=== PATIENT | male | born 1960 | race Two or more races ===

== ENCOUNTER → 2022-05-28 | Outpatient (CLI) | payer BC ==
--- NOTE | 2022-05-28 12:42 | NM ---
EXAMINATION TYPE: NM stress cardiolite complete DATE OF EXAM: 05/28/2022 COMPARISON: NONE HISTORY: History of hypercholesteremia with chest pain and palpitations. TECHNIQUE: After the intravenous administration of 10.05 mCi Tc 99m Sestamibi - Rest images obtained 60 minutes post injection. The patient exercised using a JIM protocol and 1 minute prior to peak exercise was injected with 25.1 mCi Tc 99m Sestamibi - Stress images obtained 20 minutes post inject ion. FINDINGS: Targeted heart rate was achieved during performance of the study. Review of stress and rest SPECT lori ges demonstrates no distinct perfusion abnormality. Gated analysis shows normal wall motion with an estimated left ventricular ejection fraction of 54 %. End diastolic volume slightly elevated from the normal range at 155 cc. IMPRESSION: No scintigraphic evidence for reversible ischemia
--- NOTE | 2022-05-29 11:00 | CA ---
Exercise Stress Test Report Name: Chace Fischer Exam Date: 05/28/2022 10:24 Exam Location: [place] Stress Ht (in): 68 Wt (lb): 192 BSA: 2.01 Ordering Phys: Malaika Saucedo MD Referring Phys: Malaika Saucedo MD Technologist: Brain Black Age: 62 Gender: M : 1960 Procedure CPT: Indications: I25.9 ICD-10 Codes: Patient History: CHEST PAIN, PALPITATIONS, ELEVATED CHOLESTEROL LEVELS, FAMILY HX OF HEART DISEASE Medications: ATORVASTATIN Meds past 24 hrs: Pretest Chest Pain: STRESS TEST Yonas Protocol Exercise Duration (min:sec): 08:[address] Depressions (mm): Angina Score: Haney Score: Resting HR (bpm): 68 Peak HR (bpm): 152 Resting BP (mmHg): 153 / 84 Peak BP (mmHg): 213 / 63 MPHR: 158 Target HR: 134 % MPHR: 96 METS: 10.3 Total Dose: Peak Dose: Atropine: Double Product: 65195 BP Response: Stress Termination: TARGET HR REACHED/MAX EXERTION Stress Symptoms: NO SYMPTOMS Stress Summary: ECG ANALYSIS Resting ECG: Stress ECG: CONCLUSIONS Excellent exercise tolerance. The patient exercised for 8 minutes and 30 seconds Excellent augmentation in the blood pressure and heart rate in response to exercise. The patient achieved 96% of maximum productive heart rate Normal EKG in response to exercise Dr. Presley Resendez MD (Electronically Signed) Final Date: 29 May 2022 10:59
== END | disposition home or self-care (01) ==
LOC: RADNMMAIN 08:51
PROVIDERS: ATTEND Internal Medicine
DX: I25.9 Chronic ischemic heart disease, unspecified (principal); E78.00 Pure hypercholesterolemia, unspecified; R07.9 Chest pain, unspecified; R00.2 Palpitations
CPT/HCPCS: 93017; 78452; A9500

== ENCOUNTER → 2022-07-27 | Outpatient (CLI) | payer BC ==
[2022-07-28 02:18] LABS: African American GFR (CKD) 94.6 (60.0-200.0); Anion Gap 9.9 mmol/L (10.00-18.00); Blood Urea Nitrogen 19.1 mg/dL (9.0-27.0); Carbon Dioxide 24.8 mmol/L (20.0-27.5); Non-African American GFR(CKD) 81.6 (60.0-200.0); Potassium 4.8 mmol/L (3.5-5.5)
[2022-07-28 02:23] LABS: HCT 41.6 % (39.6-50.0); HGB 13.5 g/dL (13.0-17.0); MCH 31.3 pg (27.0-32.0); MCHC 32.5 g/dL (32.0-37.0); MCV 96.3 fL (80.0-97.0); NRBC Per 100 WBC 0 /100 WBCS (0.0-0.0); Platelet Count 209 X 10*3/uL (140-440); RBC 4.32 X 10*6/uL (4.40-5.60); RDW 13.6 % (11.5-14.5); WBC 7.05 X 10*3/uL (4.50-10.00)
== END | disposition home or self-care (01) ==
LOC: LABPAT 16:13
PROVIDERS: ATTEND Internal Medicine Interventional Cardiology
DX: Z01.812 Encounter for preprocedural laboratory examination (principal); R94.39 Abnormal result of other cardiovascular function study
CPT/HCPCS: 36415; 80051; 82565; 84520; 85027

== ENCOUNTER → 2022-07-29 | Day surgery (SDC) | payer BC ==
[2022-07-28 09:49] VITALS: BMI 30.4
[~2022-07-29] MED LIST: ALPRAZolam 0.25 MG TAB PO PRN; ALPRAZolam 0.5 MG TAB PO PRN; ASPIRIN 325 MG TAB PO STA; ATORVASTATIN 80 MG TAB PO STA; HEPARIN SODIUM 1,000 UN/ML (10ML VL) IV ONE; HEPARIN SODIUM 1,000 UN/ML (10ML VL) ONE; HEPARIN SODIUM,PORCINE 10,000 UNIT in SODIUM CHLORIDE 0.9% 1,000 ML IRRIGATION PRN; HEPARIN SODIUM,PORCINE 2,500 UNIT in SODIUM CHLORIDE 0.9% 250 ML IRRIGATION PRN; IOPAMIDOL-370 100ML BTL INJ ONE; LIDOCAINE 1% INJ 10MG/ML (20 ML MDV) ONE; LIDOCAINE 1% INJ 10MG/ML (5 ML VIAL-PF) SQ ONE; MIDAZOLAM 2 MG/2 ML VIAL IVP ONE; NITROGLYCERIN SL TABS 0.4 MG TAB SUBLINGUAL PRN; SODIUM CHLORIDE 0.9% 1,000 ML in EMPTY BAG 1 BAG IV SCH; VERAPAMIL 2.5 MG/ML 2 ML AMP ONE; VERAPAMIL SYRINGE (5 MG/10 ML) INTRAARTER ONE
[2022-07-29 08:30] VITALS: RESP 18; TEMP 97.9
--- NOTE | 2022-07-29 12:42 | CA ---
Transthoracic Echo Report Name: Chace Fischer Age: 62 Gender: M : 1960 Exam Date: 07/29/2022 10:35 Exam Location: [place] Echo Ht (in): 68 Wt (lb): 200 Ordering Physician: Rivera Bello MD ([id number]) Attending/Referring Phys: Newspaper Editor Kirill Leonard Procedure CPT: Indications: ASSESS LV FUNCTION R/O CARDIOMYOPATHY Cardiac Hx: Technical Quality: Good Contrast 1: Total Dose (mL): Contrast 2: Total Dose (mL): MEASUREMENTS (Male / Female) Normal Values 2D ECHO LV Diastolic Diameter PLAX 4.6 cm 4.2 - 5.9 / 3.9 - 5.3 cm LV Systolic Diameter PLAX 2.1 cm IVS Diastolic Thickness 1.7 cm 0.6 - 1.0 / 0.6 - 0.9 cm LVPW Diastolic Thickness 1.3 cm 0.6 - 1.0 / 0.6 - 0.9 cm LV Relative Wall Thickness 0.7 RV Internal Dim ED PLAX 2.9 cm Aortic Root Diameter 3.4 cm LA Systolic Diameter LX 3.2 cm 3.0 - 4.0 / 2.7 - 3.8 cm LV Diastolic Volume MOD BP 63.7 cm??? 67 - 155 / 56 - 104 cm??? LV Systolic Volume MOD BP 26.5 cm??? 22 - 58 / 19 - 49 cm??? LV Ejection Fraction MOD BP 58.4 % >= 55 % LV Diastolic Volume MOD 4C 68.5 cm??? LV Systolic Volume MOD 4C 27.8 cm??? LV Ejection Fraction MOD 4C 59.4 % LV Diastolic Length 4C 7.6 cm LV Systolic Length 4C 6.5 cm LV Diastolic Volume MOD 2C 59.0 cm??? LV Systolic Volume MOD 2C 25.4 cm??? LV Ejection Fraction MOD 2C 57.0 % LV Diastolic Length 2C 7.7 cm LV Systolic Length 2C 6.5 cm Ascending Aorta Diameter 3.5 cm DOPPLER AV Peak Velocity 100.5 cm/s AV Peak Gradient 4.0 mmHg AI Peak Velocity 391.7 cm/s AI Peak Gradient 61.4 mmHg AI Pressure Half Time 840.8 ms MR Peak Velocity 475.9 cm/s MR Peak Gradient 90.6 mmHg Mitral E Point Velocity 79.9 cm/s Mitral A Point Velocity 34.4 cm/s Mitral E to A Ratio 2.3 MV Deceleration Time 224.8 ms MV E' Velocity 7.5 cm/s Mitral E to MV E' Ratio 10.6 TR Peak Velocity 265.9 cm/s TR Peak Gradient 28.3 mmHg Right Ventricular Systolic Press 33.4 mmHg FINDINGS Left Ventricle Left ventricular ejection fraction is estimated at _55-60 %. Mild to Moderate Concentric Left ventricular hypertrophy. Right Ventricle Normal right ventricular size and function. Right ventricular systolic pressure estimated at 38 mm hg. Right Atrium Normal right atrial size. Left Atrium Normal left atrial size. Mitral Valve Structurally normal mitral valve. [id number] mitral regurgitation. Aortic Valve Grossly Normal. Mild to Moderate Aortic reguritation. Tricuspid Valve Structurally normal tricuspid valve.[id number] tricuspid regurgitation. Pulmonic Valve Pulmonic valve not well visualized. No pulmonic regurgitation. Pericardium Normal pericardium. No pericardial effusion. Aorta Normal size aortic root and proximal ascending aorta. CONCLUSIONS Normal LV size and systolic function with mild concentric LVH. Mild to moderate aortic regurgitation and mild mitral regurgitation. No significant pulmonary hypertension. No pericardial effusion Previewed by: Dr. Rivera Bello MD (Electronically Signed) Final Date: 29 Jul 2022 12:41
[2022-07-29 12:54] VITALS: BP 139/77; PULSE 50
--- NOTE | 2022-07-29 17:31 | CC ---
CARDIAC CATHETERIZATION REPORT DATE OF SERVICE: 07/29/2022. PROCEDURES PERFORMED: Left heart catheterization and coronary angiography. PERFORMED BY: Dr. Brigiad Bello. Moderate conscious sedation time was 13 minutes. The patient was administered Versed. Oxygen saturation, hemodynamics, and EKG were monitored closely. CLINICAL INFORMATION: Mr. Chace Fischer is a 62-year-old gentleman with a history of borderline hypertension and hyperlipidemia, who has been having episodes of palpitations and occasional lightheadedness, and event monitor revealed short runs of nonsustained ventricular tachycardia and also 1 run which seemed more of an aberrancy as well. Because of frequent runs of nonsustained VT and symptoms of dizziness and near-syncope, I recommended coronary angiography. The patient was explained the details, risks, benefits, and options and wished to proceed with the procedure. PROCEDURE NOTE: Under local anesthesia and strict aseptic precautions, a 6-[place] introducer was placed in the right radial artery. Using JL3.5 and JR4 catheters, I performed coronary angiography, and the same right catheter was used to check LV pressures, but LV-gram was not performed. The patient tolerated the procedure well without complications. A Vasc Band was applied, and the saturation in the fingers of the right hand was 99%. CARDIAC CATHETERIZATION FINDINGS: The left ventricular end-diastolic pressure was about 18 mmHg without any gradient across aortic valve. CORONARY ANGIOGRAPHY FINDINGS: RIGHT CORONARY ARTERY: Large, dominant vessel, no significant disease, minor irregularities. Distally bifurcates into PDA and PLV, both of which have minor irregularities, no significant disease. LEFT MAIN CORONARY ARTERY: Short, patent vessel, free of significant disease, that bifurcates into LAD and circumflex. LEFT ANTERIOR DESCENDING CORONARY ARTERY: Good-caliber vessel, extends along the anterior wall, gives off septal and diagonal branch. There is a large diagonal branch that again gives secondary branches and a good-sized septal branch. LAD after the diagonal becomes smaller in caliber and distal one-fourth has mild diffuse disease, but no critical stenosis involving the entire LAD system, which is a fairly good distribution system. The diagonal is also large, has minor irregularities, no significant disease. LEFT POSTERIOR CIRCUMFLEX CORONARY ARTERY: Nondominant vessel, gives off a groove branch and a small obtuse marginal and then runs distally as a single obtuse marginal branch, has minor irregularities. About a 40% narrowing in the obtuse marginal branch after the AV groove branch and left atrial circumflex branch is noted. Circumflex is nondominant, has a 40% lesion in the obtuse marginal branch. LEFT VENTRICULOGRAM: Left ventriculogram was not performed. FINAL IMPRESSION: This patient has a right-dominant system, elevated filling pressures, no gradient, about a 40% circumflex disease. No significant disease in right coronary artery. Diffuse distal left anterior descending irregularities in the distal one-fourth. RECOMMENDATIONS: Continued medical therapy. I am adding losartan 50 mg daily to the regimen and continue beta-bj, statin, and aspirin. I will also refer him for Electrophysiology for possible EP study given his runs of ventricular tachycardia. We will obtain echocardiogram as well today. MMODL / IJN: [id number] /
== END ==
LOC: CATHCVL 08:12
PROVIDERS: ATTEND Internal Medicine Interventional Cardiology
DX: I25.10 Atherosclerotic heart disease of native coronary artery without angina pectoris (principal); I08.3 Combined rheumatic disorders of mitral, aortic and tricuspid valves; I47.1 Supraventricular tachycardia; F17.210 Nicotine dependence, cigarettes, uncomplicated; E78.5 Hyperlipidemia, unspecified; Z82.49 Family history of ischemic heart disease and other diseases of the circulatory system
CPT/HCPCS: 93458; 93306; 99152; C1769; C1894; J2250; J2001; J1644; Q9967

== ENCOUNTER → 2022-09-21 | Outpatient (CLI) | payer BC ==
[2022-09-21 16:07] LABS: Blood Urea Nitrogen 17.8 mg/dL (9.0-27.0); Carbon Dioxide 24.1 mmol/L (21.6-31.8); Chloride 108 mmol/L (96-109); Potassium 4.6 mmol/L (3.5-5.5); Sodium 142 mmol/L (135-145)
[2022-09-21 16:46] LABS: HCT 42.6 % (39.6-50.0); HGB 13.5 d/dL (12.0-15.0); MCH 30.5 pg (27.0-32.0); MCHC 31.7 d/dL (32.0-37.0); MCV 96.2 FL (80.0-97.0); Mean Platelet Volume 11.4 FL (9.5-12.2); NRBC Per 100 WBC 0 X 10*3/uL (0.00-0.01); Platelet Count 198 X 10*3/uL (140-440); RBC 4.43 X 10*6/uL (4.40-5.60); RDW 13.6 % (11.5-14.5); WBC 5.29 X 10*3/uL (4.50-10.00)
== END | disposition home or self-care (01) ==
LOC: LABPAT 10:02
PROVIDERS: ATTEND Internal Medicine Clinical Cardiac Electrophysiology
DX: Z01.812 Encounter for preprocedural laboratory examination (principal); I47.29 Other ventricular tachycardia
CPT/HCPCS: 80051; 82565; 84520; 85027

== ENCOUNTER → 2022-09-24 | Day surgery (SDC) | payer BC ==
[~2022-09-24] MED LIST changes: -ALPRAZolam 0.25 MG TAB PO PRN; -ALPRAZolam 0.5 MG TAB PO PRN; -ASPIRIN 325 MG TAB PO STA; -ATORVASTATIN 80 MG TAB PO STA; -HEPARIN SODIUM 1,000 UN/ML (10ML VL) IV ONE; -HEPARIN SODIUM 1,000 UN/ML (10ML VL) ONE; -HEPARIN SODIUM,PORCINE 10,000 UNIT in SODIUM CHLORIDE 0.9% 1,000 ML IRRIGATION PRN; -HEPARIN SODIUM,PORCINE 2,500 UNIT in SODIUM CHLORIDE 0.9% 250 ML IRRIGATION PRN; -IOPAMIDOL-370 100ML BTL INJ ONE; +LACTATED RINGERS 1,000 ML IV SCH; -LIDOCAINE 1% INJ 10MG/ML (20 ML MDV) ONE; -LIDOCAINE 1% INJ 10MG/ML (5 ML VIAL-PF) SQ ONE; +METOPROLOL TARTRATE 25 MG TAB PO STA; -MIDAZOLAM 2 MG/2 ML VIAL IVP ONE; -NITROGLYCERIN SL TABS 0.4 MG TAB SUBLINGUAL PRN; +SODIUM CHLORIDE 0.9% 1,000 ML IV SCH; -SODIUM CHLORIDE 0.9% 1,000 ML in EMPTY BAG 1 BAG IV SCH; -VERAPAMIL 2.5 MG/ML 2 ML AMP ONE; -VERAPAMIL SYRINGE (5 MG/10 ML) INTRAARTER ONE
[2022-09-24 06:38] VITALS: BP 151/89; PULSE 50; RESP 18; TEMP 97.8
== END ==
LOC: CATHEP 05:42
PROVIDERS: ATTEND Internal Medicine Clinical Cardiac Electrophysiology
DX: Z53.8 Procedure and treatment not carried out for other reasons (principal); I48.0 Paroxysmal atrial fibrillation
CPT/HCPCS: 86850; 86900; 86901

== ENCOUNTER 2022-09-28 12:40 | Day surgery (SDC) | payer BC ==
[~2022-09-28 12:40] MED LIST changes: -LACTATED RINGERS 1,000 ML IV SCH; -METOPROLOL TARTRATE 25 MG TAB PO STA
[2022-09-28] MEDS ORDERED: VANCOMYCIN 1,250 MG in SODIUM CHLORIDE 0.9% 250 ML IVPB ONE (14:26)
[2022-09-28] MEDS ORDERED: ISOPROTERENOL 250 MCG/1.25 ML SYR IV ONE (14:28)
[2022-09-28] MEDS ORDERED: MIDAZOLAM 2 MG/2 ML VIAL ONE (14:28)
[2022-09-28] MEDS ORDERED: fentaNYL (PF) 50 MCG/ML 2 ML AMP ONE (14:28)
[2022-09-28] MEDS ORDERED: PROPOFOL 10 MG/ML 20 ML VIAL IV ONE (14:28)
[2022-09-28] MEDS ORDERED: LIDOCAINE 1% INJ 10MG/ML (20 ML MDV) ONE ×2 (14:39→15:12)
[2022-09-28] MEDS ORDERED: ceFAZolin 1,000 MG in SODIUM CHLORIDE 0.9% IRRIG BTL 250 ML IRRIGATION STA (14:42)
--- NOTE | 2022-09-28 14:50 | P.HPCAR ---
History of Present Illness This is Dr. Kirk dictating a consult on this patient The patient was interviewed and examined IMPRESSION / ASSESSMENT: Sarcoidosis with LV involvement, no mediastinal adenopathy on cardiac MRI Evidence of transmural scar anterior base, on cardiac MRI Evidence of mid myocardial scar inferior to lateral base, on cardiac MRI Fairly normal LV size and systolic function and 2-D echo Recurrent presyncopal spells associated with palpitations, refractory to beta blockers Near-syncopal spells earlier this year Mild coronary artery disease with a 40% left circumflex stenosis Event monitor shows long runs of nonsustained VT of several different morphologies corresponding to multiple areas of scar/delayed enhancement on MRI Sinus bradycardia, unable to maximize beta blockers to even usual doses, to treat nonsustained VT PLAN: Diagnostic EP study for risk stratification Further management thereafter HPI Patient has a history of recurrent palpitations associated with near syncopal spells He has an abnormal MRI His palpitations continue despite metoprolol ROS: No fever chills or rigors, no cough, phlegm or expectoration, no nausea, vomiting or diarrhea, no hematuria, dysuria, no musculoskeletal complaints, no strokes or seizures, no skin lesions. EXAMINATION: Pulse rate in the 50s blood pressure 144/81 mmHg line and neck examination is normal heart sounds are normal Breath sounds are clear no rhonchi no crackles No lower extremity edema Soft abdomen REVIEW OF LABS, ECG & MEDICAL DATA Currently on losartan, atorvastatin, aspirin and metoprolol but in very low doses on account of sick sinus syndrome Physical Exam Vitals: Vital Signs Temp Pulse Resp BP Pulse Ox 09/28/22 13:36 97.8 F 53 L 18 144/81 97 Intake and Output 09/27/22 09/28/22 09/28/22 22:59 06:59 14:59 Intake Total 100 Balance 100 Intake: IV 100 Other: Weight 87.8 kg Past Medical History Past Medical History: GERD/Reflux, Hyperlipidemia, Hypertension, Osteoarthritis (OA) Additional Past Medical History / Comment(s): ventricular tachycardia per pt., see Dr. Kirk H & P History of Any Multi-Drug Resistant Organisms: None Reported Past Surgical History: Heart Catheterization, Joint Replacement, Orthopedic Surgery Additional Past Surgical History / Comment(s): BILAT RAMY, alysha. arthroscopy knees, repair of facial orbital fx. w/hardware,. COLONOSCOPY. BILAT CTR Past Anesthesia/Blood Transfusion Reactions: No Reported Reaction Additional Past Anesthesia/Blood Transfusion Reaction / Comment(s): can be slow to wake up after anesthesia Past Psychological History: No Psychological Hx Reported Smoking Status: Current some day smoker Past Alcohol Use History: Occasional Additional Past Alcohol Use History / Comment(s): rare cigar @times, beer or 2 a week Past Drug Use History: None Reported - Past Family History Father Family Medical History: Cancer Physical Examination Vital Signs Temp Pulse Resp BP Pulse Ox 09/28/22 13:36 97.8 F 53 L 18 144/81 97 Intake and Output 09/27/22 09/28/22 09/28/22 22:59 06:59 14:59 Intake Total 100 Balance 100 Intake: IV 100 Other: Weight 87.8 kg Results Current Medications Generic Name Dose Route Start Last Admin Trade Name Freq PRN Reason Stop Dose Admin Sodium Chloride 1,000 mls @ 20 mls/hr 09/28/22 05:53 09/28/22 13:39 Saline 0.9% IV 10/28/22 05:54 100 mls .Q24H ANA Administration Vancomycin HCl 1,250 mg/ 250 mls @ 125 mls/hr 09/28/22 14:26 Sodium Chloride IVPB 09/28/22 16:25 ONCE ONE Protocol Cefazolin Sodium 1,000 mg/ 250 mls @ 500 mls/hr 09/28/22 14:42 Sodium Chloride IRRIGATION 09/28/22 15:11 ONCE STA Protocol Cefazolin Sodium 2 gm/ Sodium 50 mls @ 100 mls/hr 09/28/22 14:44 Chloride IVPB 09/28/22 15:13 ONCE STA Protocol Intake and Output 09/27/22 09/28/22 09/28/22 22:59 06:59 14:59 Intake Total 100 Balance 100 Intake: IV 100 Other: Weight 87.8 kg Patient Weight 09/29/22 06:59 Weight 87.8 kg
[2022-09-28] MEDS ORDERED: LIDOCAINE 1% INJ 10MG/ML (20 ML MDV) SQ ONE ×3 (14:53→17:05)
[2022-09-28] MEDS ORDERED: IOPAMIDOL-370 100ML BTL IVP ONE (16:36)
--- NOTE | 2022-09-28 16:49 | P.EPPROC ---
- EP Procedure Note Electrophysiology Procedure Note: Diagnosis Sarcoidosis Structurally abnormal LV on cardiac MRI with transmural scar in the anterior basal septum Mid myocardial/epicardial scar inferior laterally at the base on cardiac MRI Recurrent presyncopal spells associated with palpitations Documented nonsustained ventricular tachycardia multiple different morphologies Diagnostic EP study Patient was brought to the EP lab in a fasting state. Written informed consent was obtained prior to procedure Venous sheaths were placed in the right femoral vein and diagnostic catheters were positioned in the high right atrium His bundle area and the right ventricle at 2 different sites Sinus cycle length 1142 ms, ID interval 142 ms, QRS 110 ms and QT interval 470 ms AH interval 61 ms H and HV interval 40 ms VA Wenckebach block greater than 480 ms. Dimitry response was noted to Parahisian pacing However with nonselective His bundle capture the PRICE time was 275 ms Sinus node recovery times revealed abnormal sinus node function with prolonged sinus node recovery times of 1483 and 1604. AV node function antegradely was also abnormal. AV node Wenckebach block 410 ms VA Wenckebach block 440 ms Burst stimulation in the right ventricle was performed Ventricular extra stimulation was performed from 2 sites Polymorphic VT was induced, nonsustained All sheaths were removed at the end the study and Vascade was used to seal the punctures Impression Conduction system study revealed abnormal sinus node function Abnormal AV node function Normal HV interval Inducible PMVT, nonsustained Plan in view of sarcoidosis with the LV structural abnormality with high risk for sudden cardiac arrest based on at least 2 areas on cardiac MRI as described above recurrent presyncope associated with palpitations, continue palpitations on beta blockers, nonsustained VT of multiple different morphologies on event monitor and evidence of Sick Sinus Syndrome/abnormal AV node function, I would recommend a dual-chamber ICD for management of risk of sudden cardiac and management of conduction system disease. This will also allow us to maximize his beta blockers and any future use any suppressive antiarrhythmic drug therapy for suppression of ventricular tachycardia.
[2022-09-28] MEDS ORDERED: ACETAMINOPHEN TAB 325 MG TAB PO PRN (18:10)
--- NOTE | 2022-09-28 18:28 | P.EPPROC ---
- EP Procedure Note Electrophysiology Procedure Note: Diagnosis Cardiac sarcoidosis, LV structural disease with high risk of sudden cardiac Transmural scar anterior septal base, on cardiac MRI Inferior lateral basal scar, mid myocardial/epicardial Recurrent presyncopal spells and near syncopal spells associated with palpitations Recurrent palpitations despite beta blockers Documented fast nonsustained VT of multiple different morphologies Evidence of sinus node dysfunction and AV node dysfunction on diagnostic EP study Procedure: Dual-chamber ICD implantation for management of risk of sudden cardiac /bradycardia Result: Dual chamber ICD implantation, Ana Paula Nelson DR Atrial lead: Tendril STS model #2088 TC 52 cm length, right atrial appendage, active fix lead RV ICD lead: Up to assure 58 cm single coil ICD lead in the RV apex, active fix Procedure details: Patient was brought to the EP lab in a fasting state. Written informed consent was obtained prior to the procedure. Options, pros and cons, benefits and risks and complications discussed with patient in detail prior to the procedure (shared decision making). Importance of continuing medical treatment emphasized. Alternatives discussed. Patient would like to proceed with dual-chamber ICD implant. Left upper extremity venogram performed. 15 mL IV dye injected in the left arm. Patent axillary/subclavian vein The left pectoral area was prepped and draped as a protocol. IV antibiotics administered 1% lidocaine was used for local anesthesia. A 4 cm incision was made parallel to the deltopectoral groove, about 1.5 cm medial to it. The incision was carried down to the level of the pectoralis muscle and the subfascial pocket was made. Hemostasis was assured. The axillary vein access was obtained. Appropriately sized into to see sheaths were placed. ICD lead implanted in the right ventricle and screwed in. ICD lead tested for threshold, sensing, impedances and tested with high output pacing for diaphragmatic stimulation Atrial lead placed in the right atrial appendage and tested for threshold, sensing, impedance, and tested with high output pacing. Phrenic nerve stimulation Lead secured to the underlying transverse muscle after removing sheaths . Pocket irrigated with antibiotic solution Leads connected to the biventricular ICD generator. Wound closed in 3 layers and dressed per protocol Dual ICD interrogated and programmed. Appropriate pacing parameters, antitachycardia therapies with antitachycardia pacing cardioversion defibrillations programmed. Patient tolerated the procedure well without any acute complications. See scanned device report in EMR for lead details Defibrillation level testing Defibrillation level tested in the cathodal configuration. Type 2 conversion with a 10 J shock This is repeated in Anodal configuration. Successful defibrillation of ventricular fibrillation High-voltage impedance 60 ohms, charge time 1.8 seconds MADIT RIT programming DDD 50 PPM Plan Increase beta bj dose. Stop metoprolol tartrate Start metoprolol succinate 50 mg by mouth daily and maximize further Continue losartan in the evening Baby aspirin and atorvastatin
--- NOTE | 2022-09-28 18:45 | P.PRLE ---
RE: Chace Fischer Dear Malaika Chace Fischer underwent implantation of a dual-chamber ICD for sarcoidosis with evidence of LV structural disease in the anterior basal septum (transmural scar) as well as inferolateral basal scarring. He is experiencing recurrent presyncopal spells associated with palpitations and we have documented nonsustained but fast VT of different morphologies. I will now increased and changed his beta bj to metoprolol succinate 50 mg by mouth daily He will remain on statin since he has nonobstructive 40% stenosis in the left circumflex and mild disease in the LAD However in the future he may discontinue aspirin completely since he does not have any clinical symptoms of angina but his statins should continue to keep his LDL well below 70 mg/dL, perhaps close to 50 mg/dL Thank you for entrusting me with the care of the patient Warm regards Sincerely Spencer Kirk
[2022-09-28] MEDS ORDERED: ACETAMINOPHEN IV (For NPO) 1,000 MG in EMPTY BAG 1 BAG IVPB ONE (19:00)
[2022-09-28] MEDS: ATORVASTATIN 10 MG TAB PO SCH (20:36)
[2022-09-28] MEDS: METOPROLOL SUCCINATE (ER) 50 MG TAB.ER.24H PO SCH (20:36)
--- NOTE | 2022-09-29 07:38 | XR ---
EXAMINATION TYPE: XR chest 2V DATE OF EXAM: 09/29/2022 COMPARISON: None HISTORY: 62-year-old male leak placement check TECHNIQUE: Frontal and lateral views FINDINGS: Left anterior chest wall AICD generator with right atrial and right ventricular leads. No appreciable pneumothorax. Heart normal size. Aorta and pulmonary vasculature within normal limits. No consolidat ion or pleural effusion. IMPRESSION: Left anterior chest wall with 2-lead AICD generator with right atrial and right ventricular leads. No pneumothorax.
[2022-09-29 07:41] VITALS: BP 124/75; PULSE 58; RESP 18; TEMP 98.7
[2022-09-29] MEDS: METOPROLOL SUCCINATE (ER) 50 MG TAB.ER.24H PO SCH (08:02)
[2022-09-29] MEDS: ATORVASTATIN 10 MG TAB PO SCH (08:02)
[2022-09-29] MEDS ORDERED: LOSARTAN 50 MG TAB PO SCH (09:00)
--- NOTE | 2022-09-29 09:49 | P.DS ---
Providers Attending physician: Spencer Kirk Primary care physician: Malaika Saucedo [facility] [facility] Course: This is a 62-year-old male who underwent dual-chamber ICD implantation for management of risk of sudden cardiac /bradycardia. Patient examined this morning at the bedside. Patient is doing well post-procedurally with no complications. The patient was deemed stable for discharge home today. Please see EMR for further hospital course details. Changes medical dual-chamber ICD was interrogated. Atrial pacing threshold 0.5 V 0.5 ms, P waves greater than 5 mV and pacing impedance 480 ohms this morning RV pacing threshold 0.5 V at 0.5 ms, R waves 19.7 mV and pacing impedance 550 ohms Discharge diagnosis Status post dual-chamber ICD implantation Cardiac sarcoidosis, LV structural disease with high risk of sudden cardiac Transmural scar anterior septal base, on cardiac MRI Inferior lateral basal scar, mid myocardial/epicardial Recurrent presyncopal spells and near syncopal spells associated with palpitations Recurrent palpitations despite beta blockers Documented fast nonsustained VT of multiple different morphologies Evidence of sinus node dysfunction and AV node dysfunction on diagnostic EP study Nurse practitioner note has been reviewed by physician. Signing provider agrees with the documented findings, assessment, and plan of care. Plan - Discharge Summary Discharge Rx Participant: No New Discharge Prescriptions: New Aspirin 81 mg PO DAILY #90 tab Metoprolol Succinate [Toprol XL] 50 mg PO DAILY #90 tab Discontinued Metoprolol Tartrate [Lopressor] 12.5 mg PO HS Aspirin 325 mg PO HS Metoprolol Tartrate [Lopressor] 25 mg PO DAILY No Action Losartan Potassium 50 mg PO DAILY Atorvastatin [Lipitor] 10 mg PO BID Discharge Medication List Atorvastatin [Lipitor] 10 mg PO BID 07/28/22 [History] Losartan Potassium 50 mg PO DAILY 09/21/22 [History] Aspirin 81 mg PO DAILY #90 tab 09/28/22 [Rx] Metoprolol Succinate [Toprol XL] 50 mg PO DAILY #90 tab 09/28/22 [Rx] Follow up Appointment(s)/Referral(s): Rivera Bello MD [STAFF PHYSICIAN] - 10/07/22 2:00 pm (Device clinic follow- up in one week) Patient Instructions/Handouts: Pacemaker (GEN), Cardiac Ablation (GEN) Activity/Diet/Wound Care/Special Instructions: PATIENT EDUCATION MATERIAL Instructions following a heart rhythm device implant. 1. Keep dressing DRY for 5 DAYS. You may cover the area with Saran or Cling Wrap, prior to a shower. 2. The dressing will be removed in the Device Clinic at [facility]. Absorbable sutures were used to close the wound. 3. Avoid raising the left arm above the shoulder level. 4 week restriction 4. Avoid arm movements, like backscratching, rubbing the head, or pulling on a cord. 4 weeks restriction 5. Gentle range of motion movements of the shoulder, closest to the incision should be performed to avoid a frozen shoulder. (Pendulum exercises of the shoulder) 6. The opposite arm may be used freely. 7. Avoid driving for 7 days. 8. Avoid activities such as golfing, swimming, weed whacking, lifting more than 10 pounds weight, bowling, gymnastics and weight training/lifting. (6 weeks restriction) 9. Activities such as wood chopping with an axe, pull-ups in the gymnasium, power lifting, arc-welding, being close to home induction cooktops will always be a problem. 10. Arm sling is only a reminder not to raise the arm above the head. You do not need to keep the arm completely immobilized. Your free to move the arm and use it and for normal activities. In case of any problems, please call [facility], [place], @ [phone], Attention: Device Clinic Device clinic follow-up in 5 days Follow-up with primary contracting executive in 2-3 months Discharge Disposition: HOME SELF-CARE
== END 2022-09-29 10:30 | disposition home or self-care (01) ==
LOC: CATHEP 12:40 → 6NMEDSUR 18:03 → CATHEP 09-29 10:30
PROVIDERS: ATTEND Internal Medicine Clinical Cardiac Electrophysiology
DX: I49.01 Ventricular fibrillation (principal); I48.0 Paroxysmal atrial fibrillation; D86.85 Sarcoid myocarditis; K21.9 Gastro-esophageal reflux disease without esophagitis; I10 Essential (primary) hypertension; E78.5 Hyperlipidemia, unspecified; M19.90 Unspecified osteoarthritis, unspecified site; F17.200 Nicotine dependence, unspecified, uncomplicated; Z86.59 Personal history of other mental and behavioral disorders; Z79.899 Other long term (current) drug therapy
CPT/HCPCS: 93623; 93641; 93620; 33249; 86900; 86901; 86850; 71046; C1894; C1769 ×2; C1760; C1721; C1730 ×2; C1892; C1898; C1777; J2250; J3370; J0690 ×3; J2001; J3010; J2704; Q9967